=== PATIENT | female | born 1990 | race African-American/Black ===

== ENCOUNTER 2022-12-30 08:00 | Outpatient (CLI) | payer OTHER ==
[2022-12-30 15:47] LABS: BILIRUBIN,URINE NEGATIVE (NEGATIVE); GLUCOSE, URINE (UA) NEGATIVE (NEGATIVE); KETONES,URINE (UA) 15 mg/dL (NEGATIVE); LEUKOCYTE ESTERASE, URINE NEGATIVE (NEGATIVE); NITRITE,URINE NEGATIVE (NEGATIVE); OCCULT BLOOD,URINE NEGATIVE (NEGATIVE); PROTEIN,URINE NEGATIVE (NEGATIVE); UROBILINOGEN,URINE 0.2 (NORMAL) E.U./dL (NORMAL)
[2022-12-30 16:15] LABS: CLARITY,URINE CLEAR (CLEAR); WBC,URINE 0-3 /HPF (0-5)
[2022-12-30 16:16] LABS: BACTERIA,URINE None Seen /HPF (None Seen); RBC,URINE None Seen /HPF (0-5); SQUAMOUS EPITHELIAL CELL,UR NONE SEEN (<= Few)
== END 2022-12-30 23:59 | disposition home or self-care (01) ==
LOC: LAB 08:00
PROVIDERS: ATTEND Obstetrics & Gynecology
DX: O09.891 Supervision of other high risk pregnancies, first trimester (principal)
CPT/HCPCS: 81001; 87086

== ENCOUNTER 2023-01-07 11:26 | Outpatient (CLI) | payer OTHER ==
--- NOTE | 2023-01-08 17:45 | Ultrasound Report ---
PROCEDURE: OB First Trimester w/TV INDICATIONS: POSITIVE TEST OUTSIDE/PRIOR DATING DATA: Last menstrual period (LMP): 10/25/2022. LMP-based estimated date of delivery (LAURA): . First dating scan (date and location): 01/07/2023. Estimated date of delivery (LAURA) from first dating scan: 08/14/2023. TECHNIQUE: Real-time scanning was performed of the fetus and maternal pelvic organs, with image documentation. Endovaginal scanning was also performed to better visualize the fetus and maternal ovaries. COMPARISON: None. FINDINGS: Intrauterine gestational sac present. Embryo: There is a single live intrauterine gestation which measures 2.1 cm in crown-rump length for a gestational age of 8 weeks, 5 days. Heart rate: 169 bpm. Other: No perigestational fluid collection. Measurement variability in dating: +/- 4 weeks by LMP, +/- 7 days by mean sac diameter (use before 6 weeks gestation if crown-rump length not able to be measured), +/- 5 days by crown-rump length (6-12 weeks gestation). Maternal organs: Ovaries appear within normal limits. IMPRESSION: 1. Single live intrauterine gestation with a gestational age of 8 weeks, 5 days. Reviewed by: Idania Oliveira MD on 01/08/2023 5:43 PM PST Approved by: Idania Oliveira MD on 01/08/2023 5:43 PM PST Station ID: [id number]
== END 2023-01-07 11:27 | disposition home or self-care (01) ==
LOC: DI 11:26
PROVIDERS: ATTEND Obstetrics & Gynecology
DX: O09.891 Supervision of other high risk pregnancies, first trimester (principal); Z3A.08 8 weeks gestation of pregnancy

== ENCOUNTER 2023-01-26 08:00 | Outpatient (CLI) | payer OTHER ==
[2023-01-26 21:49] LABS: CHLAMYDIA TRACHOMATIS DNA NEGATIVE (NEGATIVE); NEISSERIA GONORRHOEAE DNA NEGATIVE (NEGATIVE); TRICHOMONAS VAGINALIS DNA NEGATIVE (NEGATIVE)
== END 2023-01-26 23:59 | disposition home or self-care (01) ==
LOC: LAB.WC 08:00
PROVIDERS: ATTEND Obstetrics & Gynecology
DX: O16.9 Unspecified maternal hypertension, unspecified trimester (principal); Z11.3 Encounter for screening for infections with a predominantly sexual mode of transmission
CPT/HCPCS: 82570; 84156; 87491; 87591; 87661

== ENCOUNTER → 2023-01-26 | Outpatient (CLI) | payer OTHER ==
[2023-01-26 16:07] LABS: CREATININE,URINE 111.4 mg/dL; PROTEIN/CREATININE RATIO,URINE 0.1 (<=0.2)
[2023-01-26 21:49] LABS: CHLAMYDIA TRACHOMATIS DNA NEGATIVE (NEGATIVE); NEISSERIA GONORRHOEAE DNA NEGATIVE (NEGATIVE); TRICHOMONAS VAGINALIS DNA NEGATIVE (NEGATIVE)
== END ==
LOC: LAB 15:33
PROVIDERS: ATTEND Obstetrics & Gynecology
DX: O16.9 Unspecified maternal hypertension, unspecified trimester (principal); Z11.3 Encounter for screening for infections with a predominantly sexual mode of transmission
CPT/HCPCS: 82570; 84156; 87491; 87591; 87661

== ENCOUNTER 2023-02-22 14:43 | Outpatient (CLI) | payer OTHER ==
[2023-02-22 15:12] LABS: BASOPHILS % (AUTO) 0.6 %; EOSINOPHILS # (AUTO) 0.1 10^3/uL (0.0-0.7); EOSINOPHILS % (AUTO) 1.1 %; HCT - HEMATOCRIT 35.2 % (37.0-47.0); HGB - HEMOGLOBIN 11.1 g/dL (12.0-16.0); LYMPHOCYTES # (AUTO) 2.1 10^3/uL (1.5-3.5); LYMPHOCYTES % (AUTO) 31.4 %; MEAN CORPUSCULAR HEMOGLOBIN 26.2 pg (27.0-31.0); MEAN CORPUSCULAR HGB CONC 31.5 g/dL (32.0-36.0); MEAN CORPUSCULAR VOLUME 83.2 fL (81.0-99.0); MEAN PLATELET VOLUME 9.3 fL (7.9-10.8); MONOCYTES # (AUTO) 0.6 10^3/uL (0.0-1.0); MONOCYTES % (AUTO) 8.9 %; NEUTROPHILS # (AUTO) 3.8 10^3/uL (1.5-6.6); NEUTROPHILS % (AUTO) 57.7 %; PLT - PLATELET COUNT 366 10^3/uL (130-450); RED BLOOD COUNT 4.23 10^6/uL (4.20-5.40); RED CELL DISTRIBUTION WIDTH 16.3 % (12.0-15.0); WHITE BLOOD COUNT 6.7 x10^3/uL (4.8-10.8)
[2023-02-22 15:40] LABS: THYROID STIMULATING HORMONE 0.94 uIU/mL (0.34-5.60)
[2023-02-22 20:09] LABS: ESTIMATED AVERAGE GLUCOSE 120 mg/dL (70-100); HEMOGLOBIN A1c% 5.8 % (4.27-6.07)
[2023-02-23 03:12] LABS: RPR Non Reactive (Non Reactive)
[2023-02-23 04:09] LABS: HBsAG SCREEN Negative (Negative)
[2023-02-23 06:10] LABS: HCV AB Non Reactive (Non Reactive); HIV SCREEN 4TH GENERATION Non Reactive (Non Reactive)
[2023-02-23 09:09] LABS: VARICELLA-ZOSTER AB IGG 978 index (Immune >165)
== END 2023-02-22 14:44 | disposition home or self-care (01) ==
LOC: LAB 14:43
PROVIDERS: ATTEND Obstetrics & Gynecology
DX: O09.891 Supervision of other high risk pregnancies, first trimester (principal); O16.9 Unspecified maternal hypertension, unspecified trimester
CPT/HCPCS: 36415; 83036; 84443; 85025; 86592; 86762; 86787; 86803; 86850; 86900; 86901; 87340; 87389

== ENCOUNTER 2023-05-02 09:20 | Outpatient (CLI) | payer OTHER ==
[2023-05-02 12:07] LABS: BASOPHILS % (AUTO) 0.2 %; EOSINOPHILS # (AUTO) 0.1 10^3/uL (0.0-0.7); EOSINOPHILS % (AUTO) 1.2 %; HCT - HEMATOCRIT 33.3 % (37.0-47.0); HGB - HEMOGLOBIN 10.5 g/dL (12.0-16.0); LYMPHOCYTES # (AUTO) 1.9 10^3/uL (1.5-3.5); LYMPHOCYTES % (AUTO) 21.9 %; MEAN CORPUSCULAR HEMOGLOBIN 27.9 pg (27.0-31.0); MEAN CORPUSCULAR HGB CONC 31.5 g/dL (32.0-36.0); MEAN CORPUSCULAR VOLUME 88.3 fL (81.0-99.0); MEAN PLATELET VOLUME 9.9 fL (7.9-10.8); MONOCYTES # (AUTO) 0.4 10^3/uL (0.0-1.0); MONOCYTES % (AUTO) 4.8 %; NEUTROPHILS % (AUTO) 71.1 %; PLT - PLATELET COUNT 373 10^3/uL (130-450); RED BLOOD COUNT 3.77 10^6/uL (4.20-5.40); RED CELL DISTRIBUTION WIDTH 14.8 % (12.0-15.0); WHITE BLOOD COUNT 8.5 x10^3/uL (4.8-10.8)
[2023-05-02 12:23] LABS: ALBUMIN 3.5 g/dL (3.2-5.5); ALBUMIN/GLOBULIN RATIO 1.1 (1.0-2.2); BILIRUBIN,TOTAL 0.2 mg/dL (0.2-1.0); CALCIUM 9.3 mg/dL (8.5-10.3); CREATININE 0.5 mg/dL (0.6-1.3); POTASSIUM 3.5 mmol/L (3.5-4.5); TOTAL PROTEIN 6.7 g/dL (6.4-8.9)
[2023-05-02 12:25] LABS: CREATININE,URINE 13.4 mg/dL; TOTAL PROTEIN,URINE TIMED < 4 mg/dL
== END 2023-05-02 09:21 | disposition home or self-care (01) ==
LOC: LAB.N 09:20
PROVIDERS: ATTEND Obstetrics & Gynecology
DX: O16.1 Unspecified maternal hypertension, first trimester (principal); O09.891 Supervision of other high risk pregnancies, first trimester
CPT/HCPCS: 36415; 80053; 82570; 82950; 84156; 85025

== ENCOUNTER 2023-05-04 07:56 | Outpatient (CLI) | payer OTHER ==
[2023-05-04 08:37] LABS: GTT GLUCOSE,FASTING 100 mg/dL (74-109)
== END 2023-05-04 07:57 | disposition home or self-care (01) ==
LOC: LAB 07:56
PROVIDERS: ATTEND Obstetrics & Gynecology
DX: O99.810 Abnormal glucose complicating pregnancy (principal)
CPT/HCPCS: 36415; 82951; 82952

== ENCOUNTER 2023-06-01 12:18 | Outpatient (CLI) | payer OTHER ==
--- NOTE | 2023-06-01 15:35 | Ultrasound Report ---
PROCEDURE: OB Follow up INDICATIONS: GESTATIONAL DIABETES OUTSIDE/PRIOR DATING DATA: Last menstrual period (LMP): 10/25/2022. LMP-based estimated date of delivery (LAURA): 08/01/2023. First dating scan (date and location): 01/07/23 at [facility]. Estimated date of delivery (LAURA) from first dating scan: 08/14/2023. The below data below was generated using the ultrasound LAURA of 08/14/2023 TECHNIQUE: Real-time scanning was performed of the fetus, with image documentation and biometric measurements. Endovaginal scanning: Not performed. COMPARISON: OB ultrasound on January 07, 2023. FINDINGS: General: A single living intrauterine gestation is present. Presentation: Vertex Placenta: Placental position is posterior, without previa. Amniotic fluid index: 12.4 cm, within normal limits for gestational age (26.1%). heart rate: 152 beats per minute. Maternal cervical canal: 2.8 cm long; normal length is 2.5 cm or more. biometrics: Biparietal diameter: 7.18 cm, 28 weeks and 6 days (20%) Head circumference: 26.9 cm, 29 weeks and 2 days (15.5%) Abdominal circumference: 23.5 cm, 27 weeks and 6 days (7.6%) Femur length: 5.4 cm, 28 weeks and 5 days, 16.4% Estimated gestational age from initial scan: 29 weeks and 3 days Composite gestational age from present scan: 28 weeks and 5 days Estimated weight and percentile: 1211.1 g, 9.4% Measurement variability in biometric dating: +/- 10 days from 12-20 weeks gestation, +/- 2 weeks from 20-30 weeks gestation, +/- 3 weeks at 30 weeks gestation or more. Other: Not applicable. IMPRESSION: 1.Single living intrauterine gestation in vertex presentation. Estimated gestational age from present scan is 28 weeks and 5 days. 2.Estimated weight is at 9.4% which may be secondary to growth restriction. Recommend ernesto rt interval follow-up. 3.Amniotic fluid index is 12.4 cm (26.1%). Reviewed by: Fransisco Tobias MD on 06/01/2023 3:34 PM PDT Approved by: Fransisco Tobias MD on 06/01/2023 3:34 PM PDT Station ID: [id number]
== END 2023-06-01 12:19 | disposition home or self-care (01) ==
LOC: DI 12:18
PROVIDERS: ATTEND Nurse Practitioner
DX: O09.893 Supervision of other high risk pregnancies, third trimester (principal); Z3A.28 28 weeks gestation of pregnancy

== ENCOUNTER 2023-06-21 15:50 | Outpatient (CLI) | payer OTHER ==
--- NOTE | 2023-06-22 13:02 | Ultrasound Report ---
PROCEDURE: OB Biophysical Profile INDICATIONS: GESTATIONAL DIABETES OUTSIDE/PRIOR DATING DATA: Last menstrual period (LMP): 10/25/2022. LMP-based estimated date of delivery (LAURA): 08/01/2023. First dating scan (date and location): 01-07-23 Estimated date of delivery (LAURA) from first dating scan: 08/14/2023. TECHNIQUE: Real-time scanning was performed of the fetus, with image documentation and biometric michelle surements. Biophysical profile was also obtained. COMPARISON: 06/01/2023 FINDINGS: General: A single living intrauterine gestation is present. Presentation: Vertex Placenta: Placental position is posterior, without previa. Amniotic fluid index: 15.3 cm, within normal limit for gestational age. heart rate: 140 beats per minute. Maternal cervical canal: 2.7 cm long; normal length is 2.5 cm or more. biometrics: Biparietal diameter: 8.04, 32 weeks and 2 days, 41.5% Head circumference: 27.7 cm, 30 weeks and 2 days, 0.5% Abdominal circumference: 27.7 cm, 31 weeks and 5 days, 32.2% Femur length: 6.15 cm, 31 weeks and 6 days, 27.1% Estimated gestational age from initial scan: 32 weeks and 2 days Composite gestational age from present scan: 31 weeks and 4 days Estimated weight and percentile: 1814 g, 22 percentile Measurement variability in biometric dating: +/- 10 days from 12-20 weeks gestation, +/- 2 weeks from 20-30 weeks gestation, +/- 3 weeks at 30 weeks gestation or later. Biophysical profile: Tone: 2 points. Movement: 2 points. Respiration: 2 points. Largest pocket of fluid: 2 points. Umbilical artery Doppler: Ranging from 2.8-4.3 SD ratio Preserved diastolic flow. IMPRESSION: Living intrauterine gestation at 32 weeks and 2 days. Normal interval growth at the 22nd percentile t paulino. Vertex presentation. Normal WEST[place]. 8 out of 8 BPP. Cord SD ratio of the side is borderline elevated for gestational age of 4.3. Attention on follo w-up. Subjectively, diastolic flow is preserved. On the placental side, SD ratio is within normal wiley its at 2.8. Reviewed by: Rafael Rodney MD on 06/22/2023 1:01 PM PDT Approved by: Rafael Rodney MD on 06/22/2023 1:01 PM PDT Station ID: [id number]
== END 2023-06-21 15:51 | disposition home or self-care (01) ==
LOC: DI 15:50
PROVIDERS: ATTEND Nurse Practitioner
DX: O24.419 Gestational diabetes mellitus in pregnancy, unspecified control (principal); O09.893 Supervision of other high risk pregnancies, third trimester; O16.3 Unspecified maternal hypertension, third trimester; Z3A.32 32 weeks gestation of pregnancy

== ENCOUNTER 2023-06-21 15:52 | Outpatient (CLI) | payer OTHER ==
--- NOTE | 2023-06-22 13:05 | Ultrasound Report ---
PROCEDURE: OB Biophysical Profile INDICATIONS: GESTATIONAL DIABETES OUTSIDE/PRIOR DATING DATA: Last menstrual period (LMP): 10/25/2022. LMP-based estimated date of delivery (LAURA): 08/01/2023. First dating scan (date and location): 01-07-23 Estimated date of delivery (LAURA) from first dating scan: 08/14/2023. TECHNIQUE: Real-time scanning was performed of the fetus, with image documentation and biometric michelle surements. Biophysical profile was also obtained. COMPARISON: 06/01/2023 FINDINGS: General: A single living intrauterine gestation is present. Presentation: Vertex Placenta: Placental position is posterior, without previa. Amniotic fluid index: 15.3 cm, within normal limit for gestational age. heart rate: 140 beats per minute. Maternal cervical canal: 2.7 cm long; normal length is 2.5 cm or more. biometrics: Biparietal diameter: 8.04, 32 weeks and 2 days, 41.5% Head circumference: 27.7 cm, 30 weeks and 2 days, 0.5% Abdominal circumference: 27.7 cm, 31 weeks and 5 days, 32.2% Femur length: 6.15 cm, 31 weeks and 6 days, 27.1% Estimated gestational age from initial scan: 32 weeks and 2 days Composite gestational age from present scan: 31 weeks and 4 days Estimated weight and percentile: 1814 g, 22 percentile Measurement variability in biometric dating: +/- 10 days from 12-20 weeks gestation, +/- 2 weeks from 20-30 weeks gestation, +/- 3 weeks at 30 weeks gestation or later. Biophysical profile: Tone: 2 points. Movement: 2 points. Respiration: 2 points. Largest pocket of fluid: 2 points. Umbilical artery Doppler: Ranging from 2.8-4.3 SD ratio Preserved diastolic flow. IMPRESSION: Living intrauterine gestation at 32 weeks and 2 days. Normal interval growth at the 22nd percentile t paulino. Vertex presentation. Normal WESTON. 8 out of 8 BPP. Cord SD ratio of the side is borderline elevated for gestational age of 4.3. Attention on follo w-up. Subjectively, diastolic flow is preserved. On the placental side, SD ratio is within normal wiley its at 2.8. Reviewed by: Rafael Rodney MD on 06/22/2023 1:04 PM PDT Approved by: Rafael Rodney MD on 06/22/2023 1:04 PM PDT Station ID: [id number]
== END 2023-06-21 15:53 | disposition home or self-care (01) ==
LOC: DI 15:52
PROVIDERS: ATTEND Nurse Practitioner
DX: O24.419 Gestational diabetes mellitus in pregnancy, unspecified control (principal); Z3A.32 32 weeks gestation of pregnancy

== ENCOUNTER 2023-06-21 17:14 | Outpatient (CLI) | payer OTHER ==
[2023-06-21 18:12] VITALS: BP 109/66
--- NOTE | 2023-06-21 20:07 | PROCEDURE REPORT ---
- HPI Diagnosis/Indication for NST: Other (Gestational diabetes and chronic hypertension) Current EDU 08/14/23 Gestation 32 Weeks and 2 Days 1 Para 0 Vital Signs Temperature 98.2 F 06/21/23 18:10 Heart Rate 85 06/21/23 18:10 Respiratory Rate 17 06/21/23 18:10 Blood Pressure 109/66 06/21/23 18:10 Temperature 98.2 F 06/21/23 18:10 Heart Rate 85 06/21/23 18:10 Respiratory Rate 17 06/21/23 18:10 Blood Pressure 109/66 06/21/23 18:10 O2 Saturation If not protocol: Oxygen Flow, liters/minute - NST Procedure NST Procedure Start Date 06/21/23 Start Time 17:24 Stop Time 17:52 Vibroacoustic Stimulation Used No - Results and Plan Findings/Impression: Reactive, Cat 1 Plan: Follow up as scheduled.
== END 2023-06-21 18:00 | disposition home or self-care (01) ==
LOC: WFO 17:14 → FBP 17:15 → WFO 18:00
PROVIDERS: ATTEND Obstetrics & Gynecology
DX: O24.419 Gestational diabetes mellitus in pregnancy, unspecified control (principal); O09.893 Supervision of other high risk pregnancies, third trimester; O16.9 Unspecified maternal hypertension, unspecified trimester; Z3A.32 32 weeks gestation of pregnancy
CPT/HCPCS: 59025

== ENCOUNTER 2023-06-24 07:58 | Outpatient (CLI) | payer OTHER ==
[2023-06-24 08:26] VITALS: BP 116/64
--- NOTE | 2023-06-24 17:37 | PROCEDURE REPORT ---
- HPI Diagnosis/Indication for NST: Intrauterine growth restriction Current EDU 08/14/23 Gestation 32 Weeks and 5 Days 1 Para 0 Vital Signs Temperature 98.4 F 06/24/23 08:13 Heart Rate 74 06/24/23 08:13 Respiratory Rate 18 06/24/23 08:13 Blood Pressure 116/64 06/24/23 08:13 Temperature 98.4 F 06/24/23 08:13 Heart Rate 74 06/24/23 08:13 Respiratory Rate 18 06/24/23 08:13 Blood Pressure 116/64 06/24/23 08:13 O2 Saturation If not protocol: Oxygen Flow, liters/minute - NST Procedure NST Procedure Start Date 06/24/23 Start Time 08:10 Stop Time 08:49 Vibroacoustic Stimulation Used No Patient States Movement Yes - Results and Plan Plan: Patient is a 33-year-old G1, P0 at 32 weeks 5 days gestation here for NST. NST Performed 06/24/2023 NST Read 06/24/2023 FHT: 135 bpm baseline, moderate variability, accelerations present, no decelerations. Reactive NST [place]: Quiescent Diagnosis 32 weeks gestation IUGR Gestational diabetes Chronic hypertension Continue with scheduled OB care
--- NOTE | 2023-06-29 15:42 | Labor Flowsheet ---
Labor Flowsheet Datetime Report Generated by CPN: 06/29/2023 15:41 Datetime: 06/24/2023 08:17 VITAL SIGNS NBP Sys/Martha/Mean (mmHg): 116 : 64 : 77 Pulse: 89 Datetime: 06/21/2023 17:24 SpO2 (%): 100
== END 2023-06-24 08:50 | disposition home or self-care (01) ==
LOC: WFO 07:58 → FBP 08:00 → WFO 08:50
PROVIDERS: ATTEND Obstetrics & Gynecology
DX: O09.893 Supervision of other high risk pregnancies, third trimester (principal); O24.419 Gestational diabetes mellitus in pregnancy, unspecified control; Z3A.32 32 weeks gestation of pregnancy; O36.5930 Maternal care for other known or suspected poor fetal growth, third trimester, not applicable or unspecified; O16.3 Unspecified maternal hypertension, third trimester
CPT/HCPCS: 59025

== ENCOUNTER 2023-07-03 08:50 | Outpatient (CLI) | payer OTHER ==
[2023-07-03 09:21] VITALS: BP 118/72
--- NOTE | 2023-07-03 10:07 | PROCEDURE REPORT ---
- HPI Diagnosis/Indication for NST: Intrauterine growth restriction Current EDU 08/14/23 Gestation 34 Weeks and 0 Days 1 Para 0 Vital Signs Temperature 207.7 F H 07/03/23 09:07 Heart Rate 97 07/03/23 09:07 Respiratory Rate 17 07/03/23 09:07 Blood Pressure 118/72 07/03/23 09:07 Temperature 97.6 F L 07/03/23 09:07 Heart Rate 97 07/03/23 09:07 Respiratory Rate 17 07/03/23 09:07 Blood Pressure 118/72 07/03/23 09:07 O2 Saturation If not protocol: Oxygen Flow, liters/minute - NST Procedure NST Procedure Start Date 07/03/23 Start Time 08:59 Stop Time 09:34 Vibroacoustic Stimulation Used No Patient States Movement Yes: IUGR - Results and Plan Findings/Impression: NST Reactive. Plan: Follow up in clinic as scheduled.
== END 2023-07-03 09:43 | disposition home or self-care (01) ==
LOC: WFO 08:50 → FBP 08:55 → WFO 09:43
PROVIDERS: ATTEND Obstetrics & Gynecology
DX: O36.5930 Maternal care for other known or suspected poor fetal growth, third trimester, not applicable or unspecified (principal); Z3A.34 34 weeks gestation of pregnancy
CPT/HCPCS: 59025

== ENCOUNTER 2023-07-06 14:29 | Outpatient (CLI) | payer OTHER ==
--- NOTE | 2023-07-06 17:44 | Ultrasound Report ---
PROCEDURE: OB Biophysical Profile INDICATIONS: GESTATIONAL DIABETES OUTSIDE/PRIOR DATING DATA: Last menstrual period (LMP): 10/25/2022. LMP-based estimated date of delivery (LAURA): 08/01/2023. First dating scan (date and location): 01/07/2023. Estimated date of delivery (LAURA) from first dating scan: 08/14/2023. The below data below was generated using the ultrasound LAURA of 08/14/2023 TECHNIQUE: Real-time scanning was performed of the fetus, with image documentation. Biophysical pro file was also obtained. Endovaginal scanning: Not performed COMPARISON: 06/30/2023 FINDINGS: General: A single living intrauterine gestation is present. Presentation: Vertex Placenta: Placental position is posterior, without previa. Amniotic fluid index: 12.8 cm, normal for gestational age. heart rate: 144 beats per minute. Maternal cervical canal: Not imaged. biometrics: Biophysical profile: Tone: 2 points. Movement: 2 points. Respiration: 2 points. Largest pocket of fluid: 2 points. IMPRESSION: Single living intrauterine at 34 weeks 3 days, LAURA of 08/14/2023. BPP 8 of 8. Reviewed by: Dave Bucio MD on 07/06/2023 5:42 PM PDT Approved by: Dave Bucio MD on 07/06/2023 5:42 PM PDT Station ID: [id number]
== END 2023-07-06 14:30 | disposition home or self-care (01) ==
LOC: DI 14:29
PROVIDERS: ATTEND Nurse Practitioner
DX: O24.419 Gestational diabetes mellitus in pregnancy, unspecified control (principal); O09.893 Supervision of other high risk pregnancies, third trimester; O16.3 Unspecified maternal hypertension, third trimester; Z3A.34 34 weeks gestation of pregnancy

== ENCOUNTER 2023-07-13 14:50 | Outpatient (CLI) | payer OTHER ==
[2023-07-13 14:57] LABS: HGB - HEMOGLOBIN 10.1 g/dL (12.0-16.0); MEAN CORPUSCULAR HEMOGLOBIN 27.4 pg (27.0-31.0); MEAN CORPUSCULAR HGB CONC 31.6 g/dL (32.0-36.0); MEAN CORPUSCULAR VOLUME 86.7 fL (81.0-99.0); MEAN PLATELET VOLUME 9.7 fL (7.9-10.8); RED BLOOD COUNT 3.69 10^6/uL (4.20-5.40); WHITE BLOOD COUNT 6.6 x10^3/uL (4.8-10.8)
[2023-07-13 15:08] LABS: PROTEIN/CREATININE RATIO,URINE 0.2 (<=0.2)
[2023-07-13 15:13] LABS: ALBUMIN 3.5 g/dL (3.2-5.5); ALBUMIN/GLOBULIN RATIO 1.1 (1.0-2.2); BILIRUBIN,TOTAL 0.2 mg/dL (0.2-1.0); CALCIUM 9.6 mg/dL (8.5-10.3); CREATININE 0.5 mg/dL (0.6-1.3); POTASSIUM 4.1 mmol/L (3.5-4.5); TOTAL PROTEIN 6.7 g/dL (6.4-8.9)
--- NOTE | 2023-07-13 19:05 | Ultrasound Report ---
PROCEDURE: OB Biophysical Profile INDICATIONS: GESTATIONAL DIABETES OUTSIDE/PRIOR DATING DATA: Last menstrual period (LMP): 10/24/2022. LMP-based estimated date of delivery (LAURA): 08/01/2023. First dating scan (date and location): January 07, 2023. Estimated date of delivery (LAURA) from first dating scan: 08/14/2023. The below data below was generated using the ultrasound LAURA of 08/14/2023 TECHNIQUE: Real-time scanning was performed of the fetus, with image documentation and biometric michelle surements. Biophysical profile was also obtained. COMPARISON: OB ultrasound 07/06/2023 FINDINGS: General: A single living intrauterine gestation is present. Presentation: Vertex Placenta: Placental position is posterior, without previa. Amniotic fluid index: 13 cm, within normal limits for gestational age. heart rate: 141 beats per minute. Maternal cervical canal: 4.3 cm long; normal length is 2.5 cm or more. biometrics: Estimated gestational age from initial scan: 35 weeks 3 days Biophysical profile: Tone: 2 points. Movement: 2 points. Respiration: 2 points. Largest pocket of fluid: 2 points. IMPRESSION: Single live intrauterine with gestational age of 35 weeks 3 days. [place]ST[place] is within normal limits. BPP 8 out of 8 Reviewed by: Loretta Valero MD on 07/13/2023 7:04 PM PDT Approved by: Loretta Valero MD on 07/13/2023 7:04 PM PDT Station ID: [id number]
== END 2023-07-13 14:51 | disposition home or self-care (01) ==
LOC: DI 14:50
PROVIDERS: ATTEND Nurse Practitioner
DX: O10.913 Unspecified pre-existing hypertension complicating pregnancy, third trimester (principal); O09.893 Supervision of other high risk pregnancies, third trimester; O24.419 Gestational diabetes mellitus in pregnancy, unspecified control; Z3A.35 35 weeks gestation of pregnancy
CPT/HCPCS: 36415; 80053; 82570; 84156; 85027

== ENCOUNTER 2023-07-17 13:59 | Outpatient (CLI) | payer OTHER ==
[2023-07-17 14:20] VITALS: BP 126/83
--- NOTE | 2023-07-17 16:26 | PROCEDURE REPORT ---
- HPI Diagnosis/Indication for NST: Other (obesity) Current EDU 08/14/23 Gestation 36 Weeks and 0 Days 1 Para 0 Vital Signs Temperature 97.7 F 07/17/23 14:10 Heart Rate 86 07/17/23 14:10 Respiratory Rate 16 07/17/23 14:10 Blood Pressure 126/83 H 07/17/23 14:10 Temperature 97.7 F 07/17/23 14:10 Heart Rate 86 07/17/23 14:10 Respiratory Rate 16 07/17/23 14:10 Blood Pressure 126/83 H 07/17/23 14:10 O2 Saturation If not protocol: Oxygen Flow, liters/minute - NST Procedure NST Procedure Start Date 07/17/23 Start Time 14:10 Stop Time 15:00 Vibroacoustic Stimulation Used No Patient States Movement Yes - Results and Plan Findings/Impression: Reactive for of 32 weeks gestation or more. NST tracing contains at least two heart rate accelerations that are at least 15 beats per minute above the baseline rate and lasting at least 15 seconds from onset to return to baseline within a twenty minute period. Plan: care as scheduled
== END 2023-07-17 15:03 | disposition home or self-care (01) ==
LOC: WFO 13:59 → FBP 14:00 → WFO 15:03
PROVIDERS: ATTEND Obstetrics & Gynecology
DX: O36.5930 Maternal care for other known or suspected poor fetal growth, third trimester, not applicable or unspecified (principal); O24.419 Gestational diabetes mellitus in pregnancy, unspecified control; O99.213 Obesity complicating pregnancy, third trimester; Z3A.36 36 weeks gestation of pregnancy

== ENCOUNTER 2023-07-20 08:00 | Outpatient (CLI) | payer OTHER | END 2023-07-20 23:59 | disposition home or self-care (01) | LOC: LAB.WC 08:00 | PROVIDERS: ATTEND Obstetrics & Gynecology | DX: Z36.85 Encounter for antenatal screening for Streptococcus B (principal) | CPT/HCPCS: 87797 ==

== ENCOUNTER 2023-07-20 15:00 | Outpatient (CLI) | payer OTHER ==
--- NOTE | 2023-07-21 13:48 | Ultrasound Report ---
PROCEDURE: OB Biophysical Profile INDICATIONS: GESTATIONAL DIABETES OUTSIDE/PRIOR DATING DATA: Last menstrual period (LMP): 10/25/2022. LMP-based estimated date of delivery (LAURA): 08/01/2023. First dating scan (date and location): 01/07/2023. Estimated date of delivery (LAURA) from first dating scan: 08/14/2023. The below data below was generated using the ultrasound LAURA of 08/14/2023 TECHNIQUE: Real-time scanning was performed of the fetus, with image documentation and biometric measurements. Endovaginal scanning: Not performed. COMPARISON: 07/13/2023 FINDINGS: General: A single living intrauterine gestation is present. Presentation: Vertex Placenta: Placental position is posterior, without previa. Amniotic fluid index: 12.0 cm, within normal limits for gestational age. Deepest pocket is 4.1 cm heart rate: 145 beats per minute. Maternal cervical canal: Not well seen biometrics: Biparietal diameter: 8.4 cm, 34 weeks 0 days Head circumference: 31.9 cm, 35 weeks 6 days Abdominal circumference: 29.4 cm, 33 weeks 3 days Femur length: 6.7 cm, 34 weeks 3 days Estimated gestational age from initial scan: 36 weeks 3 days Composite gestational age from present scan: 34 weeks 3 days Estimated weight and percentile: 2329 g, 6th percentile Measurement variability in biometric dating: +/- 10 days from 12-20 weeks gestation, +/- 2 weeks from 20-30 weeks gestation, +/- 3 weeks at 30 weeks gestation or more. Other: Biophysical profile score 8 out of 8 Tone: 2/2 Movement: 2/2 Respiration: 2/2 Amniotic fluid: 2 out of 2 Umbilical cord Dopplers range from 2.4 cm to 3.3 cm. Maintenance of forward diastolic flow. Single nuchal cord incidentally noted. IMPRESSION: Single living intrauterine in vertex presentation. Composite gestational age 2 weeks behind expected gestational age. Estimated weight at the 6th percentile. Normal biophysical profile score. Normal amniotic fluid volume. Cervix not well seen. Normal cord Dopplers. Preliminary findings given by the medical laboratory scientist to the ordering provider following completion of the ex am. Reviewed by: Lary Gasca MD on 07/21/2023 1:46 PM PDT Approved by: Lary Gasca MD on 07/21/2023 1:46 PM PDT Station ID: [id number]
== END 2023-07-20 15:01 | disposition home or self-care (01) ==
LOC: DI 15:00
PROVIDERS: ATTEND Nurse Practitioner
DX: O09.893 Supervision of other high risk pregnancies, third trimester (principal); O16.3 Unspecified maternal hypertension, third trimester; O24.419 Gestational diabetes mellitus in pregnancy, unspecified control; Z3A.34 34 weeks gestation of pregnancy

== ENCOUNTER 2023-07-20 15:54 | Outpatient (CLI) | payer OTHER ==
--- NOTE | 2023-07-21 09:26 | Ultrasound Report ---
PROCEDURE: OB Follow up INDICATIONS: GESTATIONAL DIABETES OUTSIDE/PRIOR DATING DATA: Last menstrual period (LMP): 10/25/2022. LMP-based estimated date of delivery (LAURA): 08/01/2023. First dating scan (date and location): 01/07/2023. Estimated date of delivery (LAURA) from first dating scan: 08/14/2023. The below data below was generated using the ultrasound LAURA of 08/14/2023 TECHNIQUE: Real-time scanning was performed of the fetus, with image documentation and biometric measurements. Endovaginal scanning: Not performed. COMPARISON: 07/13/2023 FINDINGS: General: A single living intrauterine gestation is present. Presentation: Vertex Placenta: Placental position is posterior, without previa. Amniotic fluid index: 12.0 cm, within normal limits for gestational age. Deepest pocket is 4.1 cm heart rate: 145 beats per minute. Maternal cervical canal: Not well seen biometrics: Biparietal diameter: 8.4 cm, 34 weeks 0 days Head circumference: 31.9 cm, 35 weeks 6 days Abdominal circumference: 29.4 cm, 33 weeks 3 days Femur length: 6.7 cm, 34 weeks 3 days Estimated gestational age from initial scan: 36 weeks 3 days Composite gestational age from present scan: 34 weeks 3 days Estimated weight and percentile: 2329 g, 6th percentile Measurement variability in biometric dating: +/- 10 days from 12-20 weeks gestation, +/- 2 weeks from 20-30 weeks gestation, +/- 3 weeks at 30 weeks gestation or more. Other: Biophysical profile score 8 out of 8 Tone: 2/2 Movement: 2/2 Respiration: 2/2 Amniotic fluid: 2 out of 2 Umbilical cord Dopplers range from 2.4 cm to 3.3 cm. Maintenance of forward diastolic flow. Single nuchal cord incidentally noted. IMPRESSION: Single living intrauterine in vertex presentation. Composite gestational age 2 weeks behind expected gestational age. Estimated weight at the 6th percentile. Normal biophysical profile score. Normal amniotic fluid volume. Cervix not well seen. Normal cord Dopplers. Preliminary findings given by the foreign clerk to the ordering provider following completion of the ex am. Reviewed by: Lary Gasca MD on 07/21/2023 9:25 AM PDT Approved by: Lary Gasca MD on 07/21/2023 9:25 AM PDT Station ID: [id number]
== END 2023-07-20 15:55 | disposition home or self-care (01) ==
LOC: DI 15:54
PROVIDERS: ATTEND Nurse Practitioner
DX: O24.419 Gestational diabetes mellitus in pregnancy, unspecified control (principal); Z3A.34 34 weeks gestation of pregnancy

== ENCOUNTER 2023-07-31 13:13 | Inpatient (IN) | payer OTHER ==
[2023-07-31 13:50] LABS: BASOPHILS % (AUTO) 0.2 %; EOSINOPHILS % (AUTO) 0.7 %; HCT - HEMATOCRIT 33.6 % (37.0-47.0); HGB - HEMOGLOBIN 10.7 g/dL (12.0-16.0); LYMPHOCYTES # (AUTO) 1.4 10^3/uL (1.5-3.5); LYMPHOCYTES % (AUTO) 25.4 %; MEAN CORPUSCULAR HEMOGLOBIN 27.6 pg (27.0-31.0); MEAN CORPUSCULAR HGB CONC 31.8 g/dL (32.0-36.0); MEAN CORPUSCULAR VOLUME 86.6 fL (81.0-99.0); MEAN PLATELET VOLUME 10.1 fL (7.9-10.8); MONOCYTES # (AUTO) 0.5 10^3/uL (0.0-1.0); MONOCYTES % (AUTO) 9.1 %; NEUTROPHILS # (AUTO) 3.6 10^3/uL (1.5-6.6); NEUTROPHILS % (AUTO) 64.4 %; PLT - PLATELET COUNT 297 10^3/uL (130-450); RED BLOOD COUNT 3.88 10^6/uL (4.20-5.40); RED CELL DISTRIBUTION WIDTH 15.9 % (12.0-15.0); WHITE BLOOD COUNT 5.6 x10^3/uL (4.8-10.8)
[2023-07-31 14:11] LABS: ALBUMIN 3.5 g/dL (3.2-5.5); ALBUMIN/GLOBULIN RATIO 1.1 (1.0-2.2); BILIRUBIN,TOTAL 0.3 mg/dL (0.2-1.0); CALCIUM 9.5 mg/dL (8.5-10.3); CREATININE 0.5 mg/dL (0.6-1.3); POTASSIUM 3.6 mmol/L (3.5-4.5); TOTAL PROTEIN 6.7 g/dL (6.4-8.9)
[2023-07-31] MEDS ORDERED: diphenhydrAMINE INJ 50 MG/ML VIAL IVP PRN (16:26)
[2023-07-31] MEDS ORDERED: miSOPROStoL 200 MCG TABLET BC PRN (16:26)
[2023-07-31] MEDS ORDERED: CARBOPROST TROMETHAMINE 250 MCG/ML VIAL IM PRN (16:26)
[2023-07-31] MEDS ORDERED: NIFEdipine 10 MG CAPSULE PO PRN (16:26)
[2023-07-31] MEDS ORDERED: LACTATED RINGERS 1,000 ML IV PRN (16:26)
[2023-07-31] MEDS ORDERED: SODIUM CHLORIDE FLUSH 0.9% 10 ML SYRINGE IVP PRN (16:26)
[2023-07-31] MEDS ORDERED: fentaNYL 100 MCG/2 ML VIAL IVP PRN (16:26)
[2023-07-31] MEDS ORDERED: OXYTOCIN/SODIUM CHLORIDE 500 ML IV PRN (16:26)
[2023-07-31] MEDS ORDERED: OXYTOCIN 10 UNIT/ML VIAL IM PRN (16:26)
[2023-07-31] MEDS ORDERED: TERBUTALINE 1 MG/ML VIAL SUBQ PRN (16:26)
[2023-07-31] MEDS ORDERED: ONDANSETRON ODT 4 MG TABLET PO PRN (16:26)
[2023-07-31] MEDS ORDERED: lidocaine 1% 20 ML MDV ID PRN (16:26)
[2023-07-31] MEDS ORDERED: METHYLERGONOVINE 0.2 MG/ML VIAL IM PRN (16:26)
[2023-07-31] MEDS ORDERED: CALCIUM CARBONATE CHEW 500 MG TABLET PO PRN (16:26)
[2023-07-31] MEDS ORDERED: ONDANSETRON 4 MG/2 ML VIAL IVP PRN (16:26)
[2023-07-31] MEDS ORDERED: hydrALAZINE INJ 20 MG/ML VIAL IVP PRN ×2 (16:26)
[2023-07-31] MEDS ORDERED: TRANEXAMIC ACID IN NACL 1,000 MG/100 ML BAG IV PRN (16:26)
[2023-07-31] MEDS ORDERED: LABETALOL 20 MG/4 ML SYRINGE IVP PRN ×3 (16:26)
[2023-07-31] MEDS ORDERED: miSOPROStoL 200 MCG TABLET PR PRN (16:26)
[2023-07-31] MEDS: miSOPROStoL 100 MCG TABLET PO SCH (16:45)
--- NOTE | 2023-07-31 17:08 | HISTORY & PHYSICAL EXAMINATION ---
Admit History - Visit Reason Visit Reason: Other (IOL) - Smoking Status: Never smoker - Other Maternal History Other Maternal History: Rachna is a 33 yo who presents today for IOL in the setting of IUGR, chronic hypertension, diet controlled gestational diabetes, Class 3 obesity. Rachna is feeling well. Denies painful contractions, LOF, VB. + FM. Denies EATON, vision changes, upper abdominal pain. She is taking labetalol 200mg q 12 hrs, last took at 12:30pm today. Recommendation for IOL was reviewed in the office with her this morning and consents were signed. [facility] US for growth was done on 07/27/23 with EFW 2510g (7th%tile) with AC 3%tile, normal WESTON, normal UA dopplers, cephalic presentation. monitoring form: G1PO LMP: 10/25/22 LAURA by LMP: 08/01/23 US:01/07/23 - not c/w dates Final LAURA: 08/14/23 sex: It's a GIRL! ANC c/b: 1. chronic HTN - initial BP 166/80 - Labetolol 200mg/BID, ASA - baseline labs normal - M at [facility], [place]. 2. Lagging biometry: -EFW 1211 g, 9.4%, AC 7.6% on 06/01/2023. -Sent to [facility]. -Most recent ultrasound showed EFW of 22%, but HC 0.5% 3. BMI 45 - nutrition/risk/lifestyle counseling complete 4. A1GDM dx at 25 weeks. - surveilence, DM education, and monthly growth scans ordered. Pre- Weight:249.0 BMI: 45.71 Blood type: O+ Rh: + Antibody: neg CBC: H/H 11.1/35.2 plt 366 RUB:Imm VZV:Imm HBsAg: Neg HepC: NR RPR/AB-EIA:NR HIV: NR PAP:01/28/22 - normal per patient -[facility] has no record. Do GC/CT: negative HSV:denies Genetic testing: QUAD drawn at [facility]-03/30 Covid: declines Flu: 02/22 FAS: appt with [facility] on03/30/23 at 20 weeks US scheduled- 03/30/23- Page 4 MFM notes Exam limited by maternal scanning characteristics and positioning. Sacral spin and many cardiac view not seen well, F/U imaging ordered to be completed 06/02 at [facility]. Placenta: posterior w/o previa Cord:3VC WESTON: normal EFW: 298g 10%ile 06/01/23 US- 9.4% 50gm OGCT: 166 3HR GTT: 05/04/2023- 100 200, 156, 121 TDAP:05/31 Breast Pump:05/03 3rd trimester H/H 10.5/33.3 PLT GBS: Delivery plan:Likely 39 week induction Contraception: Unsure PMHx: chronic hypertension, gestational diabetes, class 3 obesity PSHx: none OB hx: Social Hx: no tobacco, alcohol, drug use Fam Hx: not reviewed. see record Allergies: NKDA Meds: labetalol 200mg BID, baby aspirin, PNV PE: See VS below Gen: NAD Chest: non labored respirations Abd: gravid, non tender Ext: trace LE edema SVE: closed/approx 50%/-3 Limited bedside US performed to confirm presentation: cephalic NST: Continuous monitoring 140s bpm baseline, + accel, - decel, mod variability [place]: rare ctx Cat 1 Labs: admission labs reviewed A/P: 33 yo admitted for IOL with: - IUGR - chronic hypertension on labetalol 200mg BID - diet controlled gestational diabetes - Class 3 obesity - Anemia in (hgb 10.7) - GBS neg - Plan for IOL with PO misoprostol. IOL consents were signed in clinic with Rachna gannon AM - Pain management per patient request. - Continue labetalol 200mg BID - BG checks fasting and 2 hr postprandial during cervical ripening, q4hr during latent labor, q1hr during active labor. Vik Kaur MD - HPI Current EDU 08/14/23 Gestation 38 Weeks and 0 Days 1 Vital Signs Temperature 97.9 F 07/31/23 13:36 Heart Rate 82 07/31/23 13:36 Respiratory Rate 16 07/31/23 13:36 Blood Pressure 114/75 07/31/23 13:36 Temperature 97.9 F 07/31/23 13:36 Heart Rate 82 07/31/23 13:36 Respiratory Rate 16 07/31/23 13:36 Blood Pressure 114/75 07/31/23 13:36 O2 Saturation If not protocol: Oxygen Flow, liters/minute - NST Procedure NST Procedure Start Time 14:10 Stop Time 15:00 Meds/Allgy - Allergies Allergies/Adverse Reactions: Allergies Allergy/AdvReac Type Severity Reaction Status Date / Time No Known Drug Allergies Allergy Verified 07/17/23 14:11 Physical - Abdominal Exam Vital Signs: Temp Pulse Resp BP Pulse Ox O2 Flow Rate 97.9 F 82 16 114/75 07/31/23 13:36 07/31/23 13:36 07/31/23 13:36 07/31/23 13:36 Plan for Labor - Plan For Labor I expect patient to be DC'd or transferred within 96 hours.: Yes Results - Results Fish Bones: 07/31/23 13:35 07/31/23 13:35 Other Lab Results: Lab Results x24hrs 07/31/23 07/31/23 07/31/23 Range/Units 13:35 13:35 13:35 WBC 5.6 (4.8-10.8) x10^3/uL RBC 3.88 L (4.20-5.40) 10^6/uL Hgb 10.7 L (12.0-16.0) g/dL Hct 33.6 L (37.0-47.0) % MCV 86.6 (81.0-99.0) fL MCH 27.6 (27.0-31.0) pg MCHC 31.8 L (32.0-36.0) g/dL RDW 15.9 H (12.0-15.0) % Plt Count 297 (130-450) 10^3/uL MPV 10.1 (7.9-10.8) fL Neut # (Auto) 3.6 (1.5-6.6) 10^3/uL Lymph # (Auto) 1.4 L (1.5-3.5) 10^3/uL [place] # (Auto) 0.5 (0.0-1.0) 10^3/uL Eos # (Auto) 0.0 (0.0-0.7) 10^3/uL Baso # (Auto) 0.0 (0.0-0.1) 10^3/uL Absolute Nucleated RBC 0.00 x10^3/uL Nucleated RBC % 0.0 /100WBC Sodium 136 (135-145) mmol/L Potassium 3.6 (3.5-4.5) mmol/L Chloride 109 (101-111) mmol/L Carbon Dioxide 19 L (21-32) mmol/L Anion Gap 8.0 (6-13) BUN 6 (6-20) mg/dL Creatinine 0.5 L (0.6-1.3) mg/dL Estimated GFR (MDRD) 173 (>89) Glucose 83 (74-104) mg/dL Calcium 9.5 (8.5-10.3) mg/dL Total Bilirubin 0.3 (0.2-1.0) mg/dL AST 25 (10-42) IU/L ALT 27 (10-60) IU/L Alkaline Phosphatase 106 (42-121) IU/L Total Protein 6.7 (6.4-8.9) g/dL Albumin 3.5 (3.2-5.5) g/dL Globulin 3.2 (2.1-4.2) g/dL Albumin/Globulin Ratio 1.1 (1.0-2.2) Blood Type O POSITIVE Antibody Screen NEGATIVE
--- NOTE | 2023-07-31 18:01 | PHARMACY PROGRESS NOTE ---
- Best Possible Medication History Admit Date and Time: 07/31/23 1626 Processed by: Pharmacy Medications reviewed in ED?: No Medication History completed: Yes Patient Interview: Completed (by retail pharmacy merchandiserAdolfo) Secondary Source(s): Insurance records As the person ultimately responsible for medication therapy, providers are able to order a medication from an existing home medication list in [facility] via the "Reconcile Routine" prior to Confirmation of that medication by it desktop support specialist. Such practice is discouraged except when the physician, in their clinical judgment, deems that a medical need exists for a medication without regard to previous use.
[2023-07-31] MEDS ORDERED: diphenhydrAMINE 25 MG CAPSULE PO PRN (20:28)
[2023-07-31] MEDS: ZOLPIDEM 5 MG TABLET PO PRN (21:06)
[2023-07-31] MEDS: LABETALOL 100 MG TABLET PO SCH (21:08)
--- NOTE | 2023-08-01 11:50 | ANESTHESIA ---
Pre-Anesthesia VS, & Labs - Diagnosis Active Labor - Procedure vaginal Delivery Vital Signs: Temp Pulse Resp BP Pulse Ox O2 Flow Rate 36.6 C 82 16 114/75 07/31/23 13:36 07/31/23 13:36 07/31/23 13:36 07/31/23 13:36 Height: 5 ft 2 in Weight (kg): 115.666 kg Body Mass Index: 46.6 BMI Classification: Morbidly Obese - Is Patient ?: Yes - Lab Results Current Lab Results: Laboratory Tests 08/01/23 10:40: POC Whole Bld Glucose 90 08/01/23 07:09: POC Whole Bld Glucose 88 07/31/23 19:18: POC Whole Bld Glucose 135 H 07/31/23 13:35: Sodium 136, Potassium 3.6, Chloride 109, Carbon Dioxide 19 L, Anion Gap 8.0, BUN 6, Creatinine 0.5 L, Estimated GFR (MDRD) 173, Glucose 83, Calcium 9.5, Total Bilirubin 0.3, AST 25, ALT 27, Alkaline Phosphatase 106, Total Protein 6.7, Albumin 3.5, Globulin 3.2, Albumin/Globulin Ratio 1.1 07/31/23 13:35: WBC 5.6, RBC 3.88 L, Hgb 10.7 L, Hct 33.6 L, MCV 86.6, MCH 27.6, MCHC 31.8 L, RDW 15.9 H, Plt Count 297, MPV 10.1, Neut # (Auto) 3.6, Lymph # (Auto) 1.4 L, [place] # (Auto) 0.5, Eos # (Auto) 0.0, Baso # (Auto) 0.0, Absolute Nucleated RBC 0.00, Nucleated RBC % 0.0 07/31/23 13:35: Blood Type O POSITIVE, Antibody Screen NEGATIVE Fish Bones: 07/31/23 13:35 07/31/23 13:35 Home Medications and Allergies Home Medications: Ambulatory Orders Aspirin EC [Ecotrin] 81 mg PO DAILY 07/31/23 Labetalol HCl 200 mg PO BID 07/31/23 Pnv No.95/Ferrous Fum/Folic AC [ Tablet] 1 tab PO DAILY 07/31/23 Active Medications Calcium Carbonate/Glycine (Calcium Carbonate Chew 500 Mg Tablet) 1,000 mg PO Q6HR PRN PRN Reason: Heartburn Carboprost Tromethamine (Carboprost Tromethamine 250 Mcg/Ml Vial) 250 mcg IM .ONCE PRN PRN Reason: Hemorrhage Diphenhydramine HCl (Diphenhydramine Inj 50 Mg/Ml Vial) 25 mg IVP Q6H PRN PRN Reason: Allergy Symptoms Diphenhydramine HCl (Diphenhydramine 25 Mg Capsule) 25 - 50 mg PO Q6HR PRN PRN Reason: PER PHYSICIAN ORDER Fentanyl (Fentanyl 100 Mcg/2 Ml Vial) 50 mcg IVP Q1H PRN PRN Reason: Severe Pain (score 7-10) Hydralazine HCl (Hydralazine Inj 20 Mg/Ml Vial) 5 - 10 mg IVP Q20M PRN; Protocol PRN Reason: SBP> or= 160 OR DBP> or= 110 Hydralazine HCl (Hydralazine Inj 20 Mg/Ml Vial) 10 mg IVP .ONCE PRN; Protocol PRN Reason: SBP> or= 160 OR DBP> or= 110 Lactated Ringer's (Lr) 500 mls @ 999 mls/hr IV PRN PRN PRN Reason: Abdominal Pain Oxytocin/Sodium Chloride (Pitocin/Sodium Chloride) 500 mls @ 999 mls/hr IV PRN PRN; Protocol PRN Reason: POST- HEMORR PREVENTION Tranexamic Acid (Tranexamic 1,000 Mg/100ml-Nacl) 1,000 mg in 100 mls @ 600 mls/hr IV Q30M PRN PRN Reason: EBL >1200mL and within 3hr Labetalol HCl (Labetalol 20 Mg/4 Ml Syringe) 20 - 80 mg IVP Q10M PRN; Protocol PRN Reason: SBP> or= 160 OR DBP> or= 110 Labetalol HCl (Labetalol 20 Mg/4 Ml Syringe) 20 mg IVP .ONCE PRN; Protocol PRN Reason: SBP> or= 160 OR DBP> or= 110 Labetalol HCl (Labetalol 20 Mg/4 Ml Syringe) 20 - 40 mg IVP Q10M PRN; Protocol PRN Reason: SBP> or= 160 OR DBP> or= 110 Labetalol HCl (Labetalol 100 Mg Tablet) 200 mg PO BID CORDELL Last Admin: 08/01/23 09:19 Dose: 200 mg Lidocaine HCl (Lidocaine 1% 20 Ml Mdv) 20 ml ID .ONCE PRN PRN Reason: PERINEAL REPAIR Stop: 08/03/23 16:26 Methylergonovine Maleate (Methylergonovine 0.2 Mg/Ml Vial) 0.2 mg IM .ONCE PRN PRN Reason: Hemorrhage Misoprostol (Misoprostol 200 Mcg Tablet) 600 mcg BC .ONCE PRN PRN Reason: Hemorrhage Misoprostol (Misoprostol 200 Mcg Tablet) 800 mcg SC .ONCE PRN PRN Reason: Hemorrhage Misoprostol (Misoprostol 100 Mcg Tablet) 25 mcg PO Q4HR CORDELL Last Admin: 08/01/23 09:18 Dose: 25 mcg Nifedipine (Nifedipine 10 Mg Capsule) 10 - 20 mg PO Q20M PRN; Protocol PRN Reason: SBP> or= 160 OR DBP> or= 110 Ondansetron HCl (Ondansetron Odt 4 Mg Tablet) 4 mg PO Q4HR PRN PRN Reason: Nausea / Vomiting Ondansetron HCl (Ondansetron 4 Mg/2 Ml Vial) 4 mg IVP PRN PRN PRN Reason: Nausea / Vomiting Oxytocin (Oxytocin 10 Unit/Ml Vial) 10 unit IM .ONCE PRN PRN Reason: Step One if no IV access. Sodium Chloride (Sodium Chloride Flush 0.9% 10 Ml Syringe) 10 ml IVP PRN PRN PRN Reason: NEEDED PER PROVIDER ORDERS Sodium Chloride (Sodium Chloride Flush 0.9% 10 Ml Syringe) 10 ml IVP Q8H CORDELL Terbutaline Sulfate (Terbutaline 1 Mg/Ml Vial) 0.25 mg SUBQ .ONCE PRN PRN Reason: Tachystole Zolpidem Tartrate (Zolpidem 5 Mg Tablet) 5 mg PO QPM PRN PRN Reason: Insomnia Last Admin: 07/31/23 21:06 Dose: 5 mg Aspirin EC [Ecotrin] 81 mg PO DAILY 07/31/23 Labetalol HCl 200 mg PO BID 07/31/23 Pnv No.95/Ferrous Fum/Folic AC [ Tablet] 1 tab PO DAILY 07/31/23 Allergies/Adverse Reactions: Allergies Allergy/AdvReac Type Severity Reaction Status Date / Time No Known Drug Allergies Allergy Verified 07/17/23 14:11 Anes History & Medical History - Medical History Smoking Status: Never smoker - Obstetrical History : Events: reports: Gestational diabetes Complications: reports: Gestational diabetes Exam General: Alert, Oriented x3, Cooperative Dental: WNL Mouth Openin Fingerbreadth Mallampati classification: II Thyromental Distance: 4-6 cm Plan Anesthesia Type: Epidural Consent for Procedure(s) Verified and Reviewed: Yes Code Status: Attempt Resuscitation ASA classification: 2-Mild systemic disease Is this case an emergency?: No
--- NOTE | 2023-08-01 18:20 | PROVIDER PROGRESS NOTE ---
Subjective - Prog Note Date Prog Note Date: 08/01/23 Prog Note Time: 18:17 - Subjective Subjective: S: Rachna was seen at bedside to discuss next steps in care. She is s/p 150mcg of PO misoprostol. Feeling occasional contractions, but they are not painful. Risks/benefit of cook catheter were reviewed and she did agree to proceed with placement. O: See VS below. SVE fingertip/long/high by Lily Virgen, student nurse lamp inspector A speculum was used to visualize the cervix. The cook catheter was placed, 80/80. All instruments were removed from the vagina. She did tolerate very well. FHTs: 140s bpm baseline, + accel, very rare late decelerations, mod variability [place]: irregular FHTs Cat 2, overall very reassuring A/P: 33 yo G1PO admitted for IOL with: - IUGR - cHTN on labetalol 200mg BID, well controlled currently - diet controlled gDM - Class 3 obesity - Gestational anemia (Hgb 10.7) - GBS neg Cook balloon placed, plan to remove after 12 hours (0545). We discussed possible next steps after removal of cook balloon if not yet in labor including starting pitocin and possible AROM. Objective - Lab Results Fish Bones: 07/31/23 13:35 07/31/23 13:35 Other Labs: Lab Results x24hrs 08/01/23 08/01/23 08/01/23 Range/Units 14:34 10:40 07:09 POC Whole Bld Glucose 94 90 88 (70 - 100) mg/dL 07/31/23 Range/Units 19:18 POC Whole Bld Glucose 135 H (70 - 100) mg/dL
[2023-08-02] MEDS: SODIUM CHLORIDE FLUSH 0.9% 10 ML SYRINGE IVP PRN (10:06)
[2023-08-02] MEDS: OXYTOCIN/SODIUM CHLORIDE 500 ML IV SCH (10:07)
[2023-08-02] MEDS: LACTATED RINGERS 1,000 ML IV SCH (10:07)
--- NOTE | 2023-08-02 12:07 | PROVIDER PROGRESS NOTE ---
Labor Progress Note - Uterine Monitoring Uterine Monitoring Mode: positive: External toco Contraction Frequency (min/apart): irregular - Monitoring Monitor Mode: positive: External ultrasound Heart Rate Baseline: 145 Heart Rate Variability: positive: Moderate (6-25 bmp) Accelerations: positive: Present, 15x15 Decelerations: positive: None Strip Review: positive: Category I - Labor Progress Note Labor Progress Note/Additional Text: Patient comfortable on oxytocin. Irregular contractions. Category 1 tracing. Will recheck cervix aroun 1330. Continue increasing oxytocin. Currentlyat 8milliunits per minute.
--- NOTE | 2023-08-02 20:59 | PROVIDER PROGRESS NOTE ---
Labor Progress Note - Uterine Monitoring Uterine Monitoring Mode: positive: External toco Contraction Frequency (min/apart): 3-6 Contraction Intensity: positive: Mild - Monitoring Monitor Mode: positive: External ultrasound Heart Rate Baseline: 140 Heart Rate Variability: positive: Moderate (6-25 bmp) Accelerations: positive: Present, 15x15 Decelerations: positive: None Strip Review: positive: Category I - Vaginal Exam Dilation (in cm): 2 Effacement (%): 30 Station: -3 Cervical Position: Posterior - Labor Progress Note Labor Progress Note/Additional Text: Patient still high. CRB placed again. Oxytocin at 20 milliunits per minute. Continue at this time. Will try to dilate more and allow some descent prior to rupture. Will stay at 20 until IUPC is able to be placed. So far had 6 doses of misoprostol, CRB, and now oxytocin plus CRB.
--- NOTE | 2023-08-03 00:50 | PROVIDER PROGRESS NOTE ---
Labor Progress Note - Uterine Monitoring Uterine Monitoring Mode: positive: External toco Contraction Frequency (min/apart): 3-6 Contraction Intensity: positive: Mild - Monitoring Monitor Mode: positive: External ultrasound Heart Rate Baseline: 140 Heart Rate Variability: positive: Moderate (6-25 bmp) Accelerations: positive: Present, 15x15 Decelerations: positive: None - Labor Progress Note Labor Progress Note/Additional Text: Cervical ripening balloon remains in place. Patient handling process well. Contractions about every 3 to 6 minutes, still palpating mildly. Oxytocin was stopped for short while while she got in the bath. Restarted and continues to go up. Category 1 tracing. Patient has been on oxytocin since around 10 AM yesterday. If not progressing in the morning, will discuss options for unsuccessful induction.
[2023-08-03] MEDS ORDERED: ROPIVACAINE 0.2% 200 MG/100 ML BAG EP ONE (08:12)
[2023-08-03] MEDS ORDERED: LIDOCAINE 2%-EPI 1:100000 20 ML MDV ONE ×2 (08:12→13:10)
--- NOTE | 2023-08-03 08:19 | PROVIDER PROGRESS NOTE ---
Labor Progress Note - Uterine Monitoring Uterine Monitoring Mode: positive: External toco - Monitoring Monitor Mode: positive: External ultrasound - Vaginal Exam Dilation (in cm): 6 Effacement (%): 80 Station: -2 - Labor Progress Note Labor Progress Note/Additional Text: Cervical ripening balloon was removed at 0438. At that time was 3 cm. Pain increased subsequently, and now unable to sit still and monitor baby. Discussed amniotomy and patient consented. Moderate amount of clear fluid. IUPC and FSE placed. Since placement, appears to be approximately 150 beats per baseline, moderate variability, no accelerations, early decelerations. [place]in every 3 to 4 minutes. Category 1. Patient requesting an epidural. Anesthesia on the way.
[2023-08-03] MEDS ORDERED: NALOXONE 0.4 MG/ML VIAL IVP PRN ×3 (10:05→15:22)
[2023-08-03] MEDS ORDERED: ePHEDrine 50 MG/ML VIAL IVP PRN ×2 (10:05→13:48)
[2023-08-03] MEDS ORDERED: ROPIVACAINE 0.2% 200 MG/100 ML BAG EP PRN (10:05)
[2023-08-03] MEDS ORDERED: ONDANSETRON 4 MG/2 ML VIAL IVP PRN ×2 (10:05→13:48)
[2023-08-03] MEDS: SODIUM CHLORIDE FLUSH 0.9% 10 ML SYRINGE IVP SCH (10:41)
[2023-08-03] MEDS ORDERED: PHENYLEPHRINE HCL 0.5 MG/5 ML AMPULE ONE (13:11)
[2023-08-03] MEDS ORDERED: ePHEDrine 50 MG/ML VIAL IVP ONE (13:11)
[2023-08-03] MEDS ORDERED: SODIUM CHLORIDE 0.9% 10 ML VIAL IVP ONE (13:11)
[2023-08-03] MEDS ORDERED: OXYTOCIN/SODIUM CHLORIDE 500 ML IV ONE (13:13)
[2023-08-03] MEDS ORDERED: miSOPROStoL 200 MCG TABLET ONE (13:19)
[2023-08-03] MEDS ORDERED: CARBOPROST TROMETHAMINE 250 MCG/ML VIAL IM ONE (13:19)
[2023-08-03] MEDS ORDERED: METHYLERGONOVINE 0.2 MG/ML VIAL ONE (13:20)
--- NOTE | 2023-08-03 13:21 | PROVIDER PROGRESS NOTE ---
Labor Progress Note - Labor Progress Note Labor Progress Note/Additional Text: Patient examined at bedside. SVE 5-6/80/-3. Repetitive late decelerations present. Rachna was repositioned multiple times and IV fluid bolus given, without improvement in decelerations. She has been unchanged for > 4 hrs on pitocin, unable to increase pitocin due to repetitive late decelerations. I recommended that we proceed with primary delivery for intolerance of labor and she does agree to proceed. Risks of surgery were reviewed including pain, bleeding (possibly requiring blood transfusion or as life saving resort hysterectomy), injury to nearby structures including but not limited to bowel, bladder, scalp laceration, increased risk for DVT, . Consent was signed. Plan for 2g Ancef, 500mg azithromycin. T&C x 2 units given prolonged IOL and long time on pitocin. Vik Kaur MD
[2023-08-03] MEDS: ACETAMINOPHEN 500 MG TABLET PO ONE (13:30)
[2023-08-03] MEDS: AZITHROMYCIN INJ 500 MG in SODIUM CHLORIDE 0.9% 250 ML IV ONE (13:30)
[2023-08-03] MEDS: CITRIC ACID/SODIUM CITRATE 15 ML UDC PO ONE (13:30)
[2023-08-03] MEDS ORDERED: ONDANSETRON 4 MG/2 ML VIAL ONE (13:41)
[2023-08-03] MEDS: ceFAZolin (2G) 2 GM in SODIUM CHLORIDE 0.9% MINIBAG 100 ML IV ONE (13:45)
[2023-08-03] MEDS ORDERED: fentaNYL 100 MCG/2 ML VIAL IVP PRN (13:48)
[2023-08-03] MEDS ORDERED: MORPHINE 2 MG/ML CARPUJECT IVP PRN (13:48)
[2023-08-03] MEDS ORDERED: METOCLOPRAMIDE 10 MG/2 ML VIAL IVP PRN (13:48)
[2023-08-03] MEDS ORDERED: HYDROmorphone 0.5 MG/0.5 ML SYRINGE IVP PRN (13:48)
[2023-08-03] MEDS ORDERED: ATROPINE ABBOJECT 1 MG/10 ML SYRINGE IVP PRN (13:48)
[2023-08-03] MEDS ORDERED: LACTATED RINGERS 1,000 ML IV SCH (14:00)
[2023-08-03] MEDS ORDERED: ACETAMINOPHEN 1,000 MG/100 ML 1,000 MG/100 ML BAG IV ONE (14:06)
[2023-08-03] MEDS ORDERED: KETOROLAC 30 MG/ML VIAL ONE (14:20)
[2023-08-03] MEDS: LACTATED RINGERS 300 ML IV ONE (15:09)
[2023-08-03] MEDS ORDERED: LABETALOL 20 MG/4 ML SYRINGE IVP PRN ×3 (15:22)
[2023-08-03] MEDS ORDERED: oxyCODONE 5 MG TABLET PO PRN (15:22)
[2023-08-03] MEDS ORDERED: OXYTOCIN/SODIUM CHLORIDE 500 ML IV PRN (15:22)
[2023-08-03] MEDS ORDERED: NIFEdipine 10 MG CAPSULE PO PRN (15:22)
[2023-08-03] MEDS ORDERED: hydrALAZINE INJ 20 MG/ML VIAL IVP PRN ×2 (15:22)
[2023-08-03] MEDS ORDERED: SIMETHICONE CHEW 80 MG TABLET PO PRN (15:22)
[2023-08-03] MEDS ORDERED: SENNA 8.6 MG TABLET PO PRN (15:26)
--- NOTE | 2023-08-03 15:27 | OPERATIVE REPORT ---
Operative Report - General Admit Date: 07/31/23 - Other Other Information/Narrative: DATE OF PROCEDURE: 08/03/23 Surgeon: Vik Kaur MD Semiconductor Technician: Denise Tejada CNM Pre-Op Diagnosis: - FRANSISCO @ 38w3d - intolerance of labor - IUGR - chronic/pre-existing hypertension - diet-controlled gestational diabetes - Class 3 obesity Post-Op Diagnosis: - Same Procedures: primary LTCS Findings: normal appearing uterus/tubes/ovaries, in OP position. Specimens: none Anesthesia Technique: epidural Estimated Blood Loss (mls): 600cc Blood Replacement (mls): none Fluid Replacement (mls): 600cc Drains: bladder drained 200cc clear yellow urine with lion Complications: none Condition: stable Procedure in Detail: The patient was taken to the operating room where epidural anesthesia was found to be complete. She was prepared and draped in the normal sterile fashion in the dorsal supine position with a leftward tilt. 2g Ancef and 500mg azithromycin were given for prophylaxis. A pfannenstiel skin incision was made with the scalpel and carried down through the subcutaneous tissue in the midline. The remainder of the subcutaneous tissue was then bluntly. The fascia was incised in the midline and the incision was extended bluntly. Finger dissection was used to separate the rectus muscles in the midline and the peritoneum was entered and the layers extended bluntly. The bladder blade was then inserted. The bladder reflection was identified and a bladder flap was created. The lower uterine segment was incised in a transverse fashion with the scalpel. The uterine incision was extended bluntly. The bladder blade was removed and the infants head was brought to the hysterotomy. Fundal pressure applied and the delivered without difficulty The cord was clamped and cut after 60 sec and the was handed off to the waiting provider. The placenta was removed with gentle uterine massage and cord traction. The uterus was exteriorized and cleared of all clots and debris with moist laparotomy sponges. The uterine incision was repaired with 0 Vicryl in a running fashion. A second layer of 0 monocryl was used in an imbricating fashion. A single additional figure of eight sutures was placed at the lef angle for hemostasis. The posterior cul-de-sac was cleared of all clots and debris with laparotomy sponge and the uterus was returned to the abdomen. The gutters were cleared of all clots. Mild oozing noted at the bladder flap with was cauterized with the bovie. Surgicel was placed over this area and the hysterotomy. The rectus muscles were carefully examined and electrocautery was used to achieve hemostasis. The fascia was reapproximated with 1-Vicryl in a running fashion. The subcutaneous tissues was irrigated. The subcutaneous tissue was reapproximated with 2-0 Vicryl in two layers and the skin was closed with 3-0 monocryl. The patient tolerated the procedure well. Sponge, lap, needle, and instrument counts were correct at the end of the procedure. The patient was taken to the recovery room in stable condition. Vik Kaur MD
--- NOTE | 2023-08-03 15:37 | ANESTHESIA POST OP EVALUATION ---
Anesthesia Post Eval - Post Anesthesia Eval Vitals: Last Vital Signs Temp 36.6 C 08/03/23 15:10 Pulse 72 08/03/23 15:20 Resp 19 08/03/23 15:20 BP 126/95 H 08/03/23 15:20 Pulse Ox 100 08/03/23 15:20 O2 Flow Rate CV Function Including HR & BP: Stable Pain Control: Satisfactory Nausea & Vomiting: Negative Mental Status: Baseline Respiratory Status: Airway Patent Hydration Status: Satisfactory Anesthesia Complications: None
[2023-08-03] MEDS: KETOROLAC 30 MG/ML VIAL IVP SCH (21:11)
[2023-08-03] MEDS: ACETAMINOPHEN 500 MG TABLET PO SCH (22:36)
[2023-08-04 06:36] LABS: HCT - HEMATOCRIT 30.6 % (37.0-47.0); MEAN CORPUSCULAR HEMOGLOBIN 28.6 pg (27.0-31.0); MEAN CORPUSCULAR HGB CONC 32.7 g/dL (32.0-36.0); MEAN CORPUSCULAR VOLUME 87.4 fL (81.0-99.0); RED BLOOD COUNT 3.5 10^6/uL (4.20-5.40); WHITE BLOOD COUNT 8.1 x10^3/uL (4.8-10.8)
[2023-08-04] MEDS: DOCUSATE SODIUM 100 MG CAPSULE PO SCH (09:19)
--- NOTE | 2023-08-04 10:44 | PROVIDER PROGRESS NOTE ---
Subjective - Subjective Subjective: Subjective Patient reports she is doing well. Lochia appropriate. Denies heavy bleeding. Ambulating. Pelvic and abdominal pain well-controlled. Tolerating oral intake. Diet: Regular. Voiding without difficulty. Passing flatus. Denies BM. Patient is bonding with baby in room Breast feeding going well. Denies feeling lightheaded, dizzy or excessively fatigued. Objective General: Alert, oriented, no apparent distress. Cardiovascular: Regular rate. Regular rhythm. Lungs: No increased work of breathing. Abdomen: Uterus firm. Below umbilicus. No guarding or rebound. Extremities: No pain on palpation. No cords palpated. Distal pulses intact. Incision: Bandage in place. Assessment and Plan day 1. -Routine care -Anticipate discharge in 1 to 2 days Status post primary low-transverse section -Routine postop care Objective - Vital Signs/Intake & Output Vital Signs: Vital Signs x48h Temp Pulse Pulse Resp BP BP Pulse Ox 08/04/23 09:21 97.9 F 74 74 17 128/84 H 100 08/04/23 05:00 98.4 F 79 14 144/87 H 99 08/04/23 03:09 98.8 F 75 16 130/85 H 99 Intake & Output: Intake & Output 08/01/23 08/02/23 08/03/23 08/04/23 23:59 23:59 23:59 23:59 Intake Total 450 2356.556 5645.032 Output Total 2300 1100 Balance 450 1852.451 381.032 -1100 - Lab Results Fish Bones: 08/04/23 06:13 07/31/23 13:35 Other Labs: Lab Results x24hrs 08/04/23 07/31/23 Range/Units 06:13 13:35 WBC 8.1 (4.8-10.8) x10^3/uL RBC 3.50 L (4.20-5.40) 10^6/uL Hgb 10.0 L (12.0-16.0) g/dL Hct 30.6 L (37.0-47.0) % MCV 87.4 (81.0-99.0) fL MCH 28.6 (27.0-31.0) pg MCHC 32.7 (32.0-36.0) g/dL RDW 16.0 H (12.0-15.0) % Plt Count 271 (130-450) 10^3/uL MPV 10.0 (7.9-10.8) fL Blood Type O POSITIVE Antibody Screen NEGATIVE Crossmatch IS Only See Detail
[2023-08-04] MEDS: IBUPROFEN 600 MG TABLET PO SCH (22:27)
[2023-08-05 09:45] VITALS: O2SAT 100
--- NOTE | 2023-08-05 11:19 | PROVIDER PROGRESS NOTE ---
Subjective - Subjective Subjective: Subjective Patient reports she is doing well. Lochia appropriate. Denies heavy bleeding. Ambulating. Pelvic and abdominal pain well-controlled. Tolerating oral intake. Diet: Regular. Voiding without difficulty. Passing flatus. Denies BM. Patient is bonding with baby in room Breast feeding going well. Denies feeling lightheaded, dizzy or excessively fatigued. Objective General: Alert, oriented, no apparent distress. Cardiovascular: Regular rate. Regular rhythm. Lungs: No increased work of breathing. Abdomen: Uterus firm. Below umbilicus. No guarding or rebound. Extremities: No pain on palpation. No cords palpated. Distal pulses intact. Incision: Bandage in place. Assessment and Plan day 1. -Routine care -Anticipate discharge tomorrow Status post primary low-transverse section -Routine postop care -Discussed showering and wound care. Objective - Vital Signs/Intake & Output Vital Signs: Vital Signs x48h Temp Pulse Resp BP Pulse Ox 08/05/23 09:00 98.2 F 90 15 140/88 H 100 Intake & Output: Intake & Output 08/02/23 08/03/23 08/04/23 08/05/23 23:59 23:59 23:59 23:59 Intake Total 2475.172 6436.032 1200 100 Output Total 2300 1100 Balance 1852.451 381.032 100 100 - Lab Results Fish Bones: 08/04/23 06:13 07/31/23 13:35
[2023-08-06 08:12] VITALS: BP 135/97
--- NOTE | 2023-08-06 10:36 | Discharge Plan ---
Discharge Plan Problem Reviewed?: Yes Disposition: Home, Self Care Condition: Good Diet: Regular Activity Restrictions: Additional Comments Instruction Topics: Depression , C Section Dc No Smoking: If you smoke, Please STOP! Call for help. Follow-up with: Marquis Morris MD [Provider Admit Priv/Credential] -
--- NOTE | 2023-08-06 10:39 | DISCHARGE SUMMARY ---
Discharge Summary Admit Date: 07/31/23 Discharge Date: 08/06/23 Discharging Provider: Marquis Morris MD Code Status: Attempt Resuscitation Condition at Discharge: Good Discharge Disposition: 01 Home, Self Care - DIAGNOSES Admission Diagnoses: IUGR Chronic hypertension A1 GDM Anemia Class III obesity 38 weeks gestation Discharge Diagnoses with Status of Each Condition: Same Status post primary low-transverse section Deliver live lara - HPI History of Present Illness: Subjective Patient reports she is doing well. Lochia appropriate. Denies heavy bleeding. Ambulating. Pelvic and abdominal pain well-controlled. Tolerating oral intake. Diet: Regular. Voiding without difficulty. Passing flatus. Denies BM. Patient is bonding with baby in room Breast feeding going well. Denies feeling lightheaded, dizzy or excessively fatigued. Objective General: Alert, oriented, no apparent distress. Cardiovascular: Regular rate. Regular rhythm. Lungs: No increased work of breathing. Abdomen: Uterus firm. Below umbilicus. No guarding or rebound. Extremities: No pain on palpation. No cords palpated. Distal pulses intact. Incision: Bandage in place. - HOSPITAL COURSE Hospital Course: Patient is admitted at 38 weeks for induction of labor for IUGR, chronic hypertension, A1 GDM. She received 6 doses misoprostol followed by a cervical ripening balloon. She then was started on oxytocin and made slow progress and had an additional cervical ripening balloon placed. After this was removed, she had an amniotomy performed, but did not progress. Due to prolonged labor, remote from delivery, recurrently decelerations, patient was taken for a primary low-transverse section. Surgery was uncomplicated. course was unremarkable. She was discharged on postoperative day 3 with her . - ALLERGIES Allergies/Adverse Reactions: Allergies Allergy/AdvReac Type Severity Reaction Status Date / Time No Known Drug Allergies Allergy Verified 07/17/23 14:11 - MEDICATIONS Home Medications: Ambulatory Orders Medication Instructions Recorded Confirmed Aspirin EC [Ecotrin] 81 mg PO DAILY 07/31/23 07/31/23 Labetalol HCl 200 mg PO BID 07/31/23 07/31/23 Pnv No.95/Ferrous Fum/Folic AC 1 tab PO DAILY 07/31/23 07/31/23 [ Tablet] - LABS Result Diagrams: 08/04/23 06:13 07/31/23 13:35 - FOLLOW UP Follow Up: With [facility] in 1 week. - TIME SPENT Time Spent in Discharge (Minutes): 20
--- NOTE | 2023-08-06 14:19 | Labor Flowsheet ---
Labor Flowsheet Datetime Report Generated by CPN: 08/06/2023 14:19 Datetime: 08/06/2023 07:57 VITAL SIGNS NBP Sys/Martha/Mean (mmHg): 135 : 97 : 105 Pulse: 93 LaborFlag: Labor Datetime: 08/04/2023 05:37 Respirations: 14 SpO2 (%): 99 Temperature (C): 36.9 Temperature Route: Oral Datetime: 08/03/2023 12:40 PATIENT CARE IV/Blood Work: IV Bolus Started; IV Bolus Given ml @ Provider Reviewed Strip: Yes Strip Reviewed by: Dr. Natasha COMMUNICATION Communication: Provider at Bedside Notification Reason: Status Datetime: 08/03/2023 12:30 Stage of : Labor UTERINE ACTIVITY Monitor Mode: Internal Frequency (min): 4-5 Quality: Strong Duration (sec): 70-80 Pattern: Normal: <= 5 Contractions in 10 Minutes Resting Tone (Palpate): Relaxed Pitocin Checklist: At Least 1 Acceleration of 15 bpm x 15 Seconds in 30 Minutes or Adequate Variabi lity; No More than 2 Variable Decelerations > 60 Seconds in Duration and decreasing >60 bpm in 30 min utes; No More than 5 Uterine Contractions in 10 Minutes for any 20 Minute Interval; Uterus Palpates S oft between Contractions; IUPC Resting Tone less than 25 mmHg MONTEVIDEO UNITS (Computed) Contractions in Ten Minutes: 3 IUPC Average Intensity: 70 IUPC Average Resting Tone: 20 [place] Units (mmHg): 150 ASSESSMENT A Monitor Mode: Internal Scalp Electrode FHR Baseline Rate : 150 FHR Baseline Changes: No Baseline Change Variability: Moderate 6-25 bpm Decelerations: Late; Variable Actions for Decelerations: Side to Side Category: Category II VAGINAL EXAM Dilatation (cm): 6.0 Effacement (%): 80 Station: -2 Exam by: Dr. Kaur Membranes Ruptured Date/Time: 08/03/2023 08:00 Membranes Rupture Method: Artificial Amniotic Fluid Color: Clear Patient Position/Activity: Left Tilt Datetime: 08/03/2023 11:29 Patient Care Comments: throne position Datetime: 08/03/2023 11:19 Comments: Peanut ball Datetime: 08/03/2023 10:58 Resting Tone IUP (mmHg): 25 Intensity IUP (mmHg): 75 Accelerations: 15X15 Oxygen Method: Room Air Datetime: 08/03/2023 08:00 Monitor Interventions for UA: IUPC Inserted Contraction Comments: difficult to monitor the contractions and fhr Monitor Interventions for FHR: FSE Applied PAIN Pain Scale: 8 Pain Presence: Intermittent Pain Type: Contraction Pain Location: Abdomen Pain Relief Measures: Comfort Measures Pain Coping: Breathing Through Contractions; Requesting Pain Medication or Epidural Pain Assessment Comments: requesting epidural, anesthesia called Membrane Status: Ruptured Amniotic Fluid Amount: Small Amniotic Fluid Odor: Normal Vaginal Bleeding: Normal Show Cervix, Consistency: Soft Cervix, Position: Midposition Comfort Measures: Breathing/Relaxation TEACHING Instructional Method: Verbal Plan of Care: Plan of Care Discussed Unit Routine: Monitoring Labor/Induction: Artificial Rupture of Membranes Pain Management: Epidural Medications: Pitocin Datetime: 08/03/2023 07:29 Communication Comments: received report and assumed care of patient. Datetime: 08/03/2023 05:30 MEDICATIONS Pitocin (milliunits): Increased to @ (Annotations: pitocin increased to 20) Datetime: 08/03/2023 05:14 I/O Interventions: Up to BR Datetime: 08/03/2023 04:38 Cervical Ripening Agents: [place] Balloon Medication Comments: [place] baloon removed, 80/40 ml saline removed Datetime: 08/02/2023 16:55 Provider Notified (Name): Dr. Arturo Datetime: 08/02/2023 06:15 MERRILL'S SCORE Dilatation (cm): 1-2 cm Effacement: >80_ effaced Station: minus 3 Consistency: Soft Position: Posterior Total Merrill's Score: 6 : 5-8 = Small percentage of induction failure Datetime: 08/01/2023 21:26 Teaching Comments: Pt states she feels well informed Datetime: 08/01/2023 21:12 MATERNAL ASSESSMENT Level of Consciousness: Alert DTR's/Clonus: DTRs 1+ Headache: Denies Breath Sounds, Left: Clear and Equal Breath Sounds, Right: Clear and Equal Nausea/Vomiting: Denies RUQ Epigastric Pain: Denies Datetime: 08/01/2023 07:22 Hygiene: Shower Datetime: 07/31/2023 21:00 PTL/PROM: Hydration Related: Common Discomforts of ; Activity and Rest Datetime: 07/31/2023 16:01 Vaginal Exam Comments: abdominal ultrasound performed, vertex position confirmed
== END 2023-08-06 14:18 | disposition home or self-care (01) | DRG 787 ==
LOC: WFO 13:13 → FBP 13:14 → WFO 16:25 → FBP 16:26
PROVIDERS: ADMIT Obstetrics & Gynecology; ATTEND Obstetrics & Gynecology
PROC: 3E0DXGC Introduction of Other Therapeutic Substance into Mouth and Pharynx, External Approach (ICD-10-PCS; 2023-07-31)
PROC: 3E033VJ Introduction of Other Hormone into Peripheral Vein, Percutaneous Approach (ICD-10-PCS; 2023-07-31)
PROC: 0U7C7ZZ Dilation of Cervix, Via Natural or Artificial Opening (ICD-10-PCS; 2023-08-01)
PROC: 10907ZC Drainage of Amniotic Fluid, Therapeutic from Products of Conception, Via Natural or Artificial Opening (ICD-10-PCS; 2023-08-03)
PROC: 10H07YZ Insertion of Other Device into Products of Conception, Via Natural or Artificial Opening (ICD-10-PCS; 2023-08-03)
PROC: 4A1H74Z Monitoring of Products of Conception, Cardiac Electrical Activity, Via Natural or Artificial Opening (ICD-10-PCS; 2023-08-03)
PROC: 10D00Z1 Extraction of Products of Conception, Low, Open Approach (ICD-10-PCS; principal; 2023-08-03 13:30)
DX: O36.5930 Maternal care for other known or suspected poor fetal growth, third trimester, not applicable or unspecified (principal); O10.92 Unspecified pre-existing hypertension complicating childbirth; Z3A.38 38 weeks gestation of pregnancy; Z37.0 Single live birth; O99.214 Obesity complicating childbirth; E66.01 Morbid (severe) obesity due to excess calories; O99.02 Anemia complicating childbirth; O24.420 Gestational diabetes mellitus in childbirth, diet controlled; O76 Abnormality in fetal heart rate and rhythm complicating labor and delivery
CPT/HCPCS: 36415; 80053; 85025; 85027; 86850; 86900; 86901; 86920